=== PATIENT | male | born 1965 | race Two or more races ===

== ENCOUNTER 2024-08-27 15:27 | Emergency (ER) | payer SELFPAY ==
[2024-08-27 15:38] VITALS: BP 131/78; PULSE 81; RESP 20; TEMP 36.7; O2SAT 97
--- NOTE | 2024-08-27 15:40 | XR_ITS ---
Examination: CT brain head without contrast. 2-D sagittal coronal reconstructions Date and time of exam: August 27, 2024 1541 hours INDICATIONS: Patient fell today with injury to the head, head pain CTDI: vol (mGy):47.2 DLP: (mGycm):967 Technique: Multiple CT axial sections of the brain have been obtained, 5 mm slice thickness. Contrast has not been administered. 2-D sagittal, coronal reconstructions have been obtained Low dose protocols were performed. One or more of the following dose reduction techniques were used; automated exposure control, adjustment of the mA and/or KV according to patient size, use of iterative reconstruction technique. Findings: No significant ventricular enlargement. Intra-axial or extra-axial hemorrhage density is not seen. No mass effect or midline shift Basal cisterns are not remarkable. Fourth ventricle is midline. Cranial vault intact. Impression: Negative for acute hemorrhage, mass effect or midline shift
--- NOTE | 2024-08-27 15:40 | XR_ITS ---
Examination: CT cervical spine without contrast 2-D sagittal reconstructions 2-D coronal reconstructions 3-D reconstructions. Exam date and time:August 27, 2024 1544 hours CTDI:vol (mGy) 7.38 DLP: (mGycm) 172 Technique: Multiple 2 mm axial sections of the cervical spine have been obtained. The coronal and sagittal reconstructions have been obtained. 3-D reconstructions have been obtained. Low dose protocols were performed. One or more of the following dose reduction techniques were used; automated exposure control, adjustment of the mA and/or KV according to patient size, use of iterative reconstruction technique. Findings: Axial sections demonstrate intact base of the skull. 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 No acute cervical vertebral body fracture seen. Alignment posterior spinous processes satisfactory. Impression: No acute cervical fracture.
[2024-08-27] MEDS: DIPHTH,PERTUSS(ACELL),TET VAC 0.5 ML VIAL IMi (16:18)
[2024-08-27] MEDS: LIDOCAINE HCL 1% 20 ML VIAL INFL (16:20)
--- NOTE | 2024-08-27 16:37 | EDNOTE_ITS ---
ED Medical Clearance RME/HPI General Chief complaint: Fall Stated complaint: RETIREMENT CHECK Time Seen by Provider: 08/27/24 15:34 Arrival date/time: 08/27/24 15:27 59-year-old male presents to the emergency department today for medical clearance for incarceration patient has injuries per officers after resisting arrest patient pain a laceration to his face reports had neck pain and left hand pain Limitations: no limitations Related Information Home Medications ?Medication ?Instructions ?Recorded ?Confirmed NO HX MEDS ##0 03/11/08 Allergies Allergy/AdvReac Type Severity Reaction Status Date / Time No Known Allergies Allergy Unknown Uncoded 03/11/08 09:15 Review of Systems Review of Systems Systems Reviewed: All systems reviewed, normal except as documented Constitutional Constitutional: Reports system reviewed and no additional complaints, except as documented, Denies fever(s) and Denies headache(s) Eyes Eyes: Reports system reviewed and no additional complaints, except as documented and Denies blurry vision ENT Ears, Nose, Mouth, and Throat: Reports system reviewed and no additional complaints, except as documented, Denies headache(s), Denies nasal congestion and Denies nasal discharge Cardiovascular Cardiovascular: Reports system reviewed and no additional complaints, except as documented, Denies chest pain and Denies dyspnea Respiratory Respiratory: Reports system reviewed and no additional complaints, except as documented, Denies chest congestion, Denies cough and Denies dyspnea Gastrointestinal Gastrointestinal: Reports system reviewed and no additional complaints, except as documented and Denies abdominal pain Integumentary/Breasts Skin/Breast: Reports system reviewed and no additional complaints, except as documented, Denies rash and Reports wounds (Facial laceration) Neurologic Neurologic: Reports system reviewed and no additional complaints, except as documented, Reports as per HPI and Denies headache(s) Past Medical History Past Medical History CARDIAC: Negative Congestive Heart Failure RESPIRATORY: Negative Chronic Obstructive Pulmonary Disease (COPD) GENITOURINARY: Negative Renal Disease ENDOCRINE: Negative Diabetes Mellitus Type 1 or Diabetes Mellitus Type 2 Social History SMOKING STATUS: Never smoker ED Exam General Limitations: Present no limitations General appearance: Present alert and in no apparent distress Head Head exam: Present other (Facial laceration) Eye Eye exam: Present normal appearance, PERRL and EOMI ENT ENT exam: Present normal exam, normal oropharynx and mucous membranes moist Neck Neck exam: Present normal inspection, full ROM and trachea midline Chest Chest inspection: Present normal inspection and symmetric chest wall rise Respiratory Respiratory exam: Present normal lung sounds bilaterally Cardiovascular Cardiovascular exam: Present regular rate, normal rhythm and normal heart sounds Abdominal Exam Abdominal exam: Present soft and normal bowel sounds; Absent distention, tenderness, guarding, rebound or rigidity Extremities Exam Extremities exam: Present normal inspection and full ROM Back Exam Back exam: Present normal inspection and full ROM Neurological Exam Neurological exam: Present alert, oriented X3 and CN II-XII intact Psychiatric Psychiatric exam: Present normal affect and normal mood Skin Skin exam: Present warm, dry, intact and normal color Course Quality Measures none Orders Category Date Time Status Set Up Suture Tray STAT Care 08/27/24 15:40 Completed Wound Care NOW Care 08/27/24 15:[address] cervical spine wo con Stat Exams 08/27/24 15:[address] head/brain wo con Stat Exams 08/27/24 15:40 Completed XR hand comp LT min 3V Stat Exams 08/27/24 16:42 Completed Lidocaine 1% 20 ml [Xylocaine 1% 20 ML] Med 08/27/24 15:40 Discontinued 20 ml INFL X1 ONE Tet,Diphth,Pertuss(Acell)-Tdap [Boostrix Vacc] Med 08/27/24 15:40 Discontinued 0.5 ml IMI .ONCE ONE Vital Signs Vital signs: Vital Signs Temperature 98.1 F 08/27/24 15:38 Pulse Rate 81 08/27/24 15:38 Respiratory Rate 20 08/27/24 15:38 Blood Pressure 131/78 H 08/27/24 15:38 Pulse Oximetry (%) 97 08/27/24 15:38 Oxygen Delivery Method Room Air 08/27/24 15:38 O2 saturation 97% on room air with normal Procedures -ED Laceration Laceration 1: Site: face Side (If applicable): left Size (cm): 3 Description: linear Depth: simple, single layer Local Anesthetic: lidocaine 1% Amount of anesthesia used (mL): 6 Pre-repair: irrigated extensively Skin layer closed with: nylon Size (cm): 5-0 Number of sutures: 3 Technique: simple, interrupted Medical Clearance MDM Narrative MDM Narrative:: 59-year-old male presents to the emergency department today for medical clearance for incarceration patient has injuries per officers after resisting arrest patient pain a laceration to his face reports had neck pain and left hand pain Imaging obtained no acute emergent findings noted Patient walks with steady gait patient answers all questions appropriately Patient does have a laceration approximately 3 cm to the face which was repaired with 3 sutures wound is well-approximated with no active bleeding at time of discharge Patient discharged home in no distress to follow-up with primary care doctor in the next 24 to 48 hours and for any worsening symptoms to return to the ER immediately Patient data External records reviewed:: [facility] previous records Clinical information provided by:: patient Social determinants that could affect healthcare access:: none Patient has the following chronic illnesses:: None How is presenting disease/condition affected by chronic disease/condition?: no chronic disease Evaluation data The following diagnostics were reviewed and interpreted by me:: radiology exam(s) Lab and/or radiology exams considered but not ordered:: Radiology obtain Interpretation Summary: Reviewed by me Medications / Prescriptions Medications or Prescriptions considered but not ordered:: Given Medication administrations:: Medication Administration History Discontinued Medications Diphtheria/Tetanus/Acell Pertussis (Diphth,Pertuss(Acell),Tet Vac 0.5 Ml Vial) 0.5 ml IMi .ONCE ONE Stop: 08/27/24 15:41 Last Admin: 08/27/24 16:18 Dose: 0.5 ml Documented By: BAHMAN Lidocaine HCl (Lidocaine Hcl 1% 20 Ml Vial) 20 ml INFL X1 ONE Stop: 08/27/24 15:41 Last Admin: 08/27/24 16:20 Dose: 20 ml Documented By: BAHMAN Given Consultations Consultation(s) initiated? (list below): No Diagnosis Medical Clearance Differential Diagnosis: other (Laceration, abrasion, avulsion, closed head injury) Most likely diagnosis given after review of the tests above:: Medical clearance for incarceration, laceration Admission Indicated Admission indicated?: not indicated Admission Request Was there a request for admission?: No Disposition Plan Disposition Plan: Discharge Discharge Attestation Discharge Attestation: The patient and all family members were given an opportunity to ask questions and understood the discharge instructions. Discharge instructions specifically effects, indications for sooner follow up or return to the emergency department, and the expected course of current diagnosis. Patient condition: Stable Discharge Plan Plan Patient Disposition: HOME (Self Care) Disposition Comment: Stable Prescriptions/Referrals Prescriptions/Med Rec: No Action NO HX MEDS Qty: 0 Referrals: No Primary/Family,Physician [Primary Care Provider] - In 1 week Problem List Clinical Impression: Facial laceration, Medical clearance for incarceration Patient/Caregiver Discharge Instructions Additional Instructions: Please follow up with your primary care doctor in the next 24-48hrs for any worsening symptoms return here immediately Please have sutures removed in 7 days Print Language: French Stand Alone Forms: Alicia Award Info., Patient Portal Info Letter Vaccines Vaccines Given During Stay: TDaP PA/SUPERVISOR PIPELINES Supervising Physician PA/SUPERVISOR PIPELINES Supervising Physician:
--- NOTE | 2024-08-27 16:42 | XR_ITS ---
Examination: Hand, left 3 views Technique: Hand AP, oblique, lateral 3 views Date and time of exam: August 27, 2024 1654 hrs. Indications: Injury to the hand today with third digit pain. Findings: Mild osteopenia Small old bone density adjacent to the proximal interphalangeal joint third digit Soft tissue swelling involving the third digit No definite acute fracture Impression: Soft tissue swelling about the third digit although no definite acute fracture If pain persists recommend coned views third digit follow-up especially coned lateral view, there is no adequate lateral view of the third digit on the current lateral film of the hand, the fingers are not spread
[2024-08-27 17:18] VITALS: BMI 22.6
== END 2024-08-27 17:24 | disposition home or self-care (01) ==
PROVIDERS: Emergency Provider Emergency Medicine
DX: Z02.89 Encounter for other administrative examinations (principal); S01.81XA Laceration without foreign body of other part of head, initial encounter; S69.92XA Unspecified injury of left wrist, hand and finger(s), initial encounter; M54.2 Cervicalgia; W19.XXXA Unspecified fall, initial encounter; Z23 Encounter for immunization
CPT/HCPCS: 12013; 70450; 72125; 73130; 90471; 90715; 99284; J3490